=== PATIENT | male | born 1995 | race Caucasian/White ===

== ENCOUNTER 2019-09-20 17:45 | Emergency (ER) | payer MEDICAID, SELFPAY ==
[2019-09-20 17:49] VITALS: BP 160/93; PULSE 85; RESP 17; TEMP 37.1; O2SAT 98; BMI 35.9
--- NOTE | 2019-09-20 18:03 | XR_ITS ---
WS: [id number] RIGHT WRIST: 3 VIEW(S) TECHNIQUE: PA, oblique and lateral. HISTORY: trauma, pain after sleeping on wrist wrong. COMPARISON: None available. No acute fracture or dislocation. Well-corticated osseous density distal to the ulnar styloid is from an old injury with healing. Nonfusion at the chronic avulsion fracture site. No joint space abnormality. No soft tissue swelling. XR/XR wrist RT min 3V* [id number] IMPRESSION: No acute RIGHT wrist fracture.
--- NOTE | 2019-09-20 18:04 | W.ED.GENADLT ---
HPI - General Adult General: Chief complaint: General Medical Stated complaint: hand swelling Time Seen by Provider: 09/20/19 17:59 History of Present Illness: HPI narrative: Patient complains about right wrist pain. Fell last night and in his wrist been hurting since then. Has pain with range of motion minor swelling. MD complaint: right wrist pain Onset (ago): hour(s) Location: right and upper extremity Radiation: non-radiation Severity: mild Severity scale (1-10): 2 Quality: aching Pain Consistency: constant Relieving factors: none Associated symptoms: Reports no associated symptoms; Deny chest pain, dyspnea, headache(s), nausea, rash or vomiting Review of Systems Const: Denies: fever, chills or body aches Eyes: Denies: change in vision or blurry vision ENMT: Denies: throat pain or nasal congestion Card: Denies: chest pain or shortness of breath on exertion Resp: Denies: shortness of breath, productive cough or non-productive cough GI: Denies: abdominal pain, nausea or vomiting : Denies: difficulty urinating Musc: Reports: extremity pain Skin/Breast: Denies: rash Neuro: Denies: headache Psych: Denies: anxiety or depression Zi/Lymph: Denies: easy bruising PFSH ED PFSH: Statuses (acute, chronic, etc) shown below reflect problem list status as previously entered and may not be historically accurate Social History Smoking and tobacco status: current some day smoker Physical Exam Const: COMMON NORMALS: no apparent distress Extremity: RIGHT UPPER EXTREMITY: Yes wrist (Tender to touch mild swelling minimal range of motion due to pain neurovascular intact.) Course Vital Signs: Vital signs: Vital Signs Temperature 98.8 F 09/20/19 17:49 Pulse Rate 85 09/20/19 17:49 Respiratory Rate 17 09/20/19 17:49 Blood Pressure 160/93 09/20/19 17:49 Pulse Oximetry 98 09/20/19 17:49 Coding Level of Care Code ED [employer]
[2019-09-20 18:50] VITALS: PULSE 78; RESP 16; O2SAT 97
== END 2019-09-20 18:51 | disposition home or self-care (01) ==
PROVIDERS: Emergency Provider Nurse Practitioner Family; PCP Nurse Practitioner
DX: M79.89 Other specified soft tissue disorders (principal); F17.210 Nicotine dependence, cigarettes, uncomplicated
CPT/HCPCS: 73110; 99281

== ENCOUNTER 2021-01-28 16:28 | Emergency (ER) | payer MEDICAID, SELFPAY ==
[2021-01-28 16:31] VITALS: BP 148/88; PULSE 86; RESP 18; TEMP 36.8; O2SAT 99; BMI 38.5
--- NOTE | 2021-01-28 17:12 | W.ED.ALLEREA ---
HPI - Allergic Reaction General: Chief complaint: Allergic Reaction Stated complaint: ALLERGIC REACTION Time Seen by Provider: 01/28/21 16:30 Source: patient Mode of arrival: EMS Limitations: no limitations History of Present Illness: HPI narrative: The patient is a 26-year-old male with no significant allergies who was having lunch at a restaurant and ate raw crawfish and shortly thereafter noticed tongue swelling, facial swelling, swelling around his eyes, and difficulty swallowing. He did have some difficulty breathing at the time however in the ambulance was given epinephrine and Benadryl and his symptoms are better. He has no trouble breathing at this time. MD complaint: allergic reaction Exposure: food Associated symptoms: Reports difficulty breathing, dysphagia, facial swelling and tongue swelling; Deny abdominal pain, dizziness, hoarseness, itching, lip swelling, nausea, rash, vomiting or other Severity: severe Treatment prior to arrival: benadryl and epinephrine Previous Allergic Reaction History: none Review of Systems General: Reports: 10 or more systems reviewed and unremarkable except in HPI and below ENMT: Denies: hoarseness GI: Reports: dysphagia; Denies: abdominal pain, nausea or vomiting Neuro: Denies: dizziness All/Imm: Reports: tongue swelling and facial swelling PFSH ED PFSH: Social History Smoking and tobacco status: current some day smoker Physical Exam Const: COMMON NORMALS: no acute distress, average body habitus, patient oriented x3, no limitations, healthy appearing, alert and well nourished HENMT: COMMON NORMALS: normocephalic, atraumatic and moist oral mucous membranes HEAD & SCALP: normocephalic and atraumatic Eye: COMMON NORMALS: Equal, round and reactive pupils present, EOMs intact bilaterally, conjunctivae normal and no scleral icterus CONJUNCTIVA: Yes conjunctivae normal PUPIL: Yes Equal, round and reactive pupils present OTHER: Periorbital edema and angioedema around the left eye. Lips no swelling. Neck/C-Spine: COMMON NORMALS: no meningeal signs and no JVD Resp: COMMON NORMALS: normal respiratory effort, No retractions, No use of accessory muscles, clear to auscultation bilaterally and percussion normal AUSCULTATION: clear to auscultation bilaterally PERCUSSION: percussion normal Cardio: COMMON NORMALS: no JVD, regular rate, regular rhythm, S1 normal heart sound present, S2 normal heart sound present, No gallops present (Cardio), No clicks present (Cardio), No murmurs present (Cardio), No rub (Cardio) and Peripheral pulses 2+ throughout RATE: regular rate RHYTHM: regular rhythm HEART SOUNDS: S1 normal heart sound present and S2 normal heart sound present PERIPHERAL PULSES: Peripheral pulses 2+ throughout GI: COMMON NORMALS: Normal to inspection, nondistended, normoactive bowel sounds present, Soft to palpation, non-tender, No hepatosplenomegaly present, no masses and no bruits PALPATION: Yes Soft to palpation and Yes No hepatosplenomegaly present Extremity: COMMON NORMALS: normal to inspection, full ROM, capillary refill normal, no calf tenderness and no pedal edema Neuro: COMMON NORMALS: patient oriented x3 SENSORIUM/ORIENTATION: Yes alert MENINGEAL SIGNS: Yes no meningeal signs Skin: COMMON NORMALS: no rashes or lesions noted, no wounds, turgor normal, no jaundice, no petechiae and no mottling GENERAL SKIN EXAM: no rashes or lesions noted and turgor normal Course Reevaluation(s): Reevaluation #1: He is asking to leave, he was walking out of the ED. He states he feels better. We will discharge him home. He is advised to avoid shellfish. Time: 17:40 Vital Signs: Vital signs: Vital Signs Temperature 98.3 F 01/28/21 16:31 Pulse Rate 101 H 01/28/21 17:46 Respiratory Rate 15 01/28/21 17:46 Blood Pressure 169/97 01/28/21 17:46 Pulse Oximetry 97 01/28/21 17:46 MDM - Allergic Reaction MDM Narrative: Medical decision making narrative: 26-year-old male who was brought into the emergency department with a likely anaphylactic reaction to shellfish. He was given epinephrine and Benadryl in the ambulance on the symptoms significantly improved after that. In the emergency department he was also given corticosteroids and an H2 receptor primo. Continue to get better. Patient was not willing to wait for observation in the emergency department and wanted to be discharged home. He was therefore discharged home with a prescription for steroids on an EpiPen. Medical Records: Attestation: I reviewed the patient's medical records. Discharge Plan Discharge Patient Disposition: Home Clinical Impression: Anaphylaxis Qualifiers: Encounter type: initial encounter Qualified Code(s): T78.2XXA - Anaphylactic shock, unspecified, initial encounter Condition: Stable Prescriptions: New prednisone 20 mg tablet 60 mg PO DAILY Qty: 15 RF: 0 EpiPen 2-Justin 0.3 mg/0.3 mL auto-injector 0.3 mg IM ONCE PRN (Reason: anaphylaxis) Qty: 2 RF: 0 Continued Benadryl 25 mg Capsule 50 - 100 mg PO PRN RF: 0 ibuprofen 200 mg Tablet 400 mg PO PRN RF: 0 gabapentin 300 mg capsule 300 mg PO BEDTIME RF: 0 escitalopram oxalate 20 mg tablet 20 mg PO QAM RF: 0 Discharge Orders: Discharge ED (Routine); Ordered 01/28/21 Ordered By: Elvira Murillo Referrals: Loren Noriega APN [Primary Care Provider] - 1-3 days Discharge Diet: Usual diet Discharge Activity: Increase activity as tolerated Patient Instructions: Anaphylaxis (ED) Activity Restrictions/Additional Instructions: Return for any new or worsening symptoms. Follow-up with your primary care provider within 3 days. Take the medication as prescribed. Take Benadryl as needed. Use the EpiPen if you feel you are having a severe allergic reaction. Avoid shellfish. Coding Level of Care Code ED [employer] Exam Comprehensive
[2021-01-28] MEDS: famotidine 20 mg/2 mL INJ 40 MG IVP (17:18)
[2021-01-28 17:23] VITALS: BP 148/88; PULSE 89; RESP 18; O2SAT 99
[2021-01-28 17:46] VITALS: BP 169/97; PULSE 101; RESP 15; O2SAT 97
== END 2021-01-28 17:47 | disposition home or self-care (01) ==
PROVIDERS: Emergency Provider Family Medicine; PCP Nurse Practitioner Family
DX: T78.2XXA Anaphylactic shock, unspecified, initial encounter (principal); F17.210 Nicotine dependence, cigarettes, uncomplicated
CPT/HCPCS: 96374; 96375; 99283; J2930; J3490